=== PATIENT | male | born 2000 | race Caucasian/White ===

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

== ENCOUNTER 2019-11-16 16:24 | Emergency (ER) | payer OTHER, SELFPAY ==
[2019-11-16 16:44] VITALS: BP 147/73; PULSE 73; RESP 20; TEMP 36.8; O2SAT 99; BMI 32.8
--- NOTE | 2019-11-16 16:50 | HMH.EDUTC ---
[facility] [place] Clinical Impression: Encounter for laboratory testing for COVID-19 virus Disposition: Home, Self-Care Condition on Discharge: Good Instructions: Preventing the Spread of Coronavirus Discharge Instructions Additional Instructions: You was tested for today for COVID19 your test result should be back later this evening, you may call back later this evening to see if your test results are back and the result You was given a handout with instructions for Self Quarantine and Self isolation for while you wait on test results and what to do if they are positive May return to work after negative COVID test Return if needed Straight to ER if any life threatening symptoms Referrals: PCP,No [Primary Care Provider] - Forms: Work/School Release Time of Disposition: 16:54 Medical Decision Making - Sam Inquiry Pt receiving controlled substance: No Sam was queried for this patient: No Vital Signs: 11/16/19 16:44 Temperature 98.2 F Temperature Source Oral Pulse Rate [Right Brachial] 73 Respiratory Rate 20 Blood Pressure [Right Arm] 147/73 H Blood Pressure Mean [Right Arm] 97 Blood Pressure Source [Right Arm] Automatic Cuff Blood Pressure Position [Right Arm] Sitting 02 Sat by Pulse Oximetry 99 Oxygen Delivery Method Room Air Orders (Tests/Meds): ORDERS Category Date Time Status Covid-19 Nasal PCR ([facility] [place]) Routine Lab 11/16/19 16:26 Ordered [facility] [place] - General Stated complaint: covid test(to back to work) Time Seen by Provider: 11/16/19 16:50 Mode of Arrival: Ambulatory Source of Information: Patient Limitations: No Limitations Description of Symptoms (Recalled from Triage Doc. by RN): PATIENT STATES HIS WORK IS REQUESTING HIM TO HAVE A COVID TEST TO RETURN TO WORK. STATES HE HAD A FEVER A FEW NIGHTS AGO, BUT HE IS ASYMPTOMATIC AT THIS TIME HEENT Symptoms (Recalled from RN notes): No Resp Symptoms (Recalled from RN notes): No Skin Symptoms (Recalled from RN notes): No MS Symptoms (Recalled from RN notes): No Functional Status (Recalled from RN notes): WNL - History of Present Illness Provider Complaint: Patient states that he had a fever a few nights ago and now work is requiring him to have a COVID test prior to returning to work due to fever States that he hasnt had any fever since yesterday States that it was a low grade fever and he never had any other symptoms - Related Data Previous Rx's Medication Instructions Recorded cefdinir 300 mg capsule 600 mg PO ONCE 10 Days #20 cap 11/05/18 Allergies Allergy/AdvReac Type Severity Reaction Status Date / Time amoxicillin [AMOXICILLIN] Allergy Unknown Verified 04/06/17 09:25 penicillamine Allergy Verified 11/05/18 12:30 Penicillins Allergy Verified 11/16/19 16:49 PLASTIC TAPE Allergy Unknown I-RASH Uncoded 02/04/17 15:05 - Worker's Comp Is this a Worker's Comp case?: No [facility] History - Hepatitis A Screen Drug use history?: No High risk sexual behaviors?: No History of sexually transmitted infection?: No Currently employed?: No Childcare worker?: No Do you have indoor plumbing?: Yes Do you have electricity?: Yes Attestation statement:: This patient has been screened for Hepatitis A risk factors. I have reviewed the patient's past medical history: Yes Laterality Cases: Bilateral: Tonsillectomy Other Surgeries: Yes: Other - Social History Smoking Status: Never smoker Alcohol Intake: never Substance Use Type: denies use Occupational Status: other Housing: house Household Members: family ROS Obtained: Yes All systems reviewed & no additional complaints, Yes Systems reviewed as appropriate & no additional complaints - Constitutional Constitutional: Reports fever(s) (fever 2 days ago that hasnt returned since yesterday) - ENT Ears, Nose, Mouth, and Throat: Reports system reviewed and no additional complaints, except as docu, Denies sinus pain, Denies sinus pressure, Denies sore throat - Cardiovascular Cardi
[2019-11-16 16:55] VITALS: BP 147/73; PULSE 73; RESP 20; TEMP 36.8; O2SAT 99
== END 2019-11-16 16:58 | disposition home or self-care (01) ==
PROVIDERS: Emergency Provider Nurse Practitioner
DX: Z20.828 Contact with and (suspected) exposure to other viral communicable diseases (principal); Z88.0 Allergy status to penicillin; Z91.048 Other nonmedicinal substance allergy status
CPT/HCPCS: 99201; U0003

== ENCOUNTER 2020-08-31 14:00 | Emergency (ER) | payer OTHER, SELFPAY ==
[2020-08-31 14:00] VITALS: BP 135/79; PULSE 66; RESP 18; TEMP 36.9; O2SAT 100; BMI 32.0
--- NOTE | 2020-08-31 14:15 | XR_ITS ---
PROCEDURE: XR ELBOW RT MIN 3V CLINICAL INDICATION: PAIN AND SWELLING COMPARISON: CR ELBR3 ELBOW-RT-3 VIEWS from 11/06/2013 FINDINGS: No fracture or dislocation. No lytic or blastic change. There is normal mineralization. The joint spaces are well-preserved. No significant degenerative/arthritic changes. No erosive changes evident. Other findings:None. IMPRESSION: No acute findings. Dictated by: Shaan Storey MD 08/31/2020 15:09 Shaan Storey MD in [place] 08/31/2020 15:09
--- NOTE | 2020-08-31 14:21 | HMH.EDUTC ---
[facility] [place] Clinical Impression: Elbow pain Qualifiers: Laterality: right Qualified Code(s): M25.521 - Pain in right elbow Disposition: Home, Self-Care Condition on Discharge: Good Instructions: DI for Elbow Pain Additional Instructions: Wear acewrap to see if that will help with pain in your elbow area Follow up with your Family Doctor if no improvement or any worsening of symptoms Return if needed Take medication as prescribed Prescriptions: Ibuprofen [Ibuprofen 600mg Tablet] 600 mg PO Q6HP PRN #20 tab PRN Reason: Moderate Pain Transmission Status: Received by [id number] Referrals: Provider,Referral, [Primary Care Provider] - As needed Time of Disposition: 14:56 Medical Decision Making - Sam Inquiry Pt receiving controlled substance: No Sam was queried for this patient: No Vital Signs: 08/31/20 14:00 Temperature 98.4 F Temperature Source Oral Pulse Rate [Left Brachial] 66 Respiratory Rate 18 Blood Pressure [Left Arm] 135/79 Blood Pressure Mean [Left Arm] 97 Blood Pressure Source [Left Arm] Automatic Cuff Blood Pressure Position [Left Arm] Sitting 02 Sat by Pulse Oximetry 100 Oxygen Delivery Method Room Air - Lab Data Lab results reviewed: Yes: I reviewed the patient's lab results. Lab Results 08/31/20 14:20: Uric Acid 4.9 Orders (Tests/Meds): ORDERS Category Date Time Status XR elbow RT min 3V Stat Exams 08/31/20 14:15 Taken - Radiology Data #1 Image(s): Elbow Image Reviewed: Yes I reviewed the patient's radiology image w/the ED provider Preliminary Findings: No Fracture Seen [facility] [place]PI - General Stated complaint: pain and swelling in right elbow area Time Seen by Provider: 08/31/20 14:21 Mode of Arrival: Ambulatory Source of Information: Patient Limitations: No Limitations Description of Symptoms (Recalled from Triage Doc. by RN): PATIENT C/O PAIN AND SWELLING TO RIGHT ELBOW SINCE THIS MORNING. STATES IT HURTS WITH MOVEMENT. NO KNOWN INJURY HEENT Symptoms (Recalled from RN notes): No Resp Symptoms (Recalled from RN notes): No Skin Symptoms (Recalled from RN notes): No MS Symptoms (Recalled from RN notes): Yes Functional Status (Recalled from RN notes): WNL - History of Present Illness Provider Complaint: Patient state that he woke up this morning having pain in his right elbow area State that pain is worse when he moves it State that he doesnt recall doing anything to hurt it but feels like it is swollen and pain worse when he straightens it out States that he did work on the fence all last week and not sure if he may have pulled something or not - Related Data Previous Rx's Medication Instructions Recorded Ibuprofen [Ibuprofen 600mg 600 mg PO Q6HP PRN #20 tab 08/31/20 Tablet] Allergies Allergy/AdvReac Type Severity Reaction Status Date / Time amoxicillin [AMOXICILLIN] Allergy Unknown Verified 04/06/17 09:25 penicillamine Allergy Verified 11/05/18 12:30 Penicillins Allergy Verified 11/16/19 16:49 PLASTIC TAPE Allergy Unknown I-RASH Uncoded 02/04/17 15:05 - Worker's Comp Is this a Worker's Comp case?: No [facility] History - Hepatitis A Screen Drug use history?: No High risk sexual behaviors?: No History of sexually transmitted infection?: No Currently employed?: No Childcare worker?: No Do you have indoor plumbing?: Yes Do you have electricity?: Yes Attestation statement:: This patient has been screened for Hepatitis A risk factors. I have reviewed the patient's past medical history: Yes Laterality Cases: Bilateral: Tonsillectomy Other Surgeries: Yes: Other Fractures: Yes (HUMERUS) - Social History Smoking Status: Never smoker Alcohol Intake: never Substance Use Type: denies use Occupational Status: other Housing: house Household Members: family ROS Obtained: Yes All systems reviewed & no additional complaints, Yes Systems reviewed as appropriate & no additional complaints - Constitutional Con
[2020-08-31 14:37] LABS: Uric Acid 4.9 mg/dl (3.5-8.5)
[2020-08-31 14:55] VITALS: BP 135/79; PULSE 66; RESP 18; TEMP 36.9; O2SAT 100
== END 2020-08-31 15:00 | disposition home or self-care (01) ==
PROVIDERS: Emergency Provider Nurse Practitioner
DX: M25.521 Pain in right elbow (principal)
CPT/HCPCS: 73080; 84550; 99202; G0463

== ENCOUNTER → 2020-12-27 08:17 | Outpatient (CLI) | payer OTHER, SELFPAY | PROVIDERS: Visit Provider Nurse Practitioner | DX: Z20.822 Contact with and (suspected) exposure to COVID-19 (principal) | CPT/HCPCS: C9803; U0003; U0005 ==

== ENCOUNTER 2021-01-30 13:28 | Emergency (ER) | payer OTHER, SELFPAY ==
--- NOTE | 2021-01-30 15:47 | XR_ITS ---
PROCEDURE INFORMATION: Exam: XR Chest Exam date and time: 01/30/2021 3:47 PM Age: 20 years old Clinical indication: Cough with hemorrhage; Sternal or substernal pain; Patient HX: Patient states he got his covid booster shot on last week and has since had chest pain and coughing blood at times TECHNIQUE: Imaging protocol: XR of the chest. Views: 2 views. COMPARISON: CR CXR1 CHEST-PORTABLE 06/12/2016 4:27 PM FINDINGS: Lungs: Unremarkable. No consolidation. Pleural spaces: Unremarkable. No pleural effusion. No pneumothorax. Heart/Mediastinum: Unremarkable. No cardiomegaly. Bones/joints: Unremarkable. IMPRESSION: No acute findings.
[2021-01-30 16:11] VITALS: BP 153/79; PULSE 82; RESP 22; TEMP 37.1; O2SAT 99; BMI 31.7
--- NOTE | 2021-01-30 16:56 | HMH.EDUTC ---
[facility] [place] Clinical Impression: Acute bronchitis Qualifiers: Bronchitis organism: unspecified organism Qualified Code(s): J20.9 - Acute bronchitis, unspecified Disposition: Home, Self-Care Condition on Discharge: Good Instructions: DI for Acute Bronchitis Additional Instructions: Drink plenty of fluids. Take tylenol or ibuprofen for pain or fever. Take the medications as directed. Follow up with your regular doctor. GO TO THE ER FOR ANY WORSENING SYMPTOMS His work excuse needs to extend from the days he missed last week up until 02/01/2021. Prescriptions: Benzonatate [Benzonatate 100mg cap] 100 mg PO TIDP PRN #30 cap PRN Reason: Cough Transmission Status: Received by [id number] methylPREDNISolone [Medrol] 4 mg PO DIRECTED 6 Days #21 packet Transmission Status: Received by [id number] Azithromycin [Z-Riky 250mg Tab*] 250 mg PO UD DOSE PK #6 tab Transmission Status: Received by [id number] Referrals: Provider,Referral, [Primary Care Provider] - Forms: Work/School Release Time of Disposition: 17:14 Medical Decision Making - Medical Records Medical records reviewed: No: I reviewed the patient's medical records. - Sam Inquiry Pt receiving controlled substance: No Vital Signs: 01/30/21 16:11 01/30/21 17:28 Temperature 98.7 F 98.7 F Temperature Source Oral Pulse Rate 82 Pulse Rate [Left] 82 Respiratory Rate 22 22 Blood Pressure 153/79 H Blood Pressure [Right Arm] 153/79 H Blood Pressure Mean [Right Arm] 103 02 Sat by Pulse Oximetry 99 - Lab Data Lab results reviewed: Yes: I reviewed the patient's lab results. - Radiology Data #1 Image(s): Chest Image Reviewed: Yes I reviewed the patient's radiology image, Yes I have reviewed radiologist's interpretation Preliminary Findings: Normal/NAD, No Infiltrates Seen PROCEDURE INFORMATION: Exam: XR Chest Exam date and time: 01/30/2021 3:47 PM Age: 20 years old Clinical indication: Cough with hemorrhage; Sternal or substernal pain; Patient HX: Patient states he got his covid booster shot on last week and has since had chest pain and coughing blood at times TECHNIQUE: Imaging protocol: XR of the chest. Views: 2 views. COMPARISON: CR CXR1 CHEST-PORTABLE 06/12/2016 4:27 PM FINDINGS: Lungs: Unremarkable. No consolidation. Pleural spaces: Unremarkable. No pleural effusion. No pneumothorax. Heart/Mediastinum: Unremarkable. No cardiomegaly. Bones/joints: Unremarkable. IMPRESSION: No acute findings. [facility] [place] HPI - General Stated complaint: blood with heavy coughing Time Seen by Provider: 01/30/21 16:40 Mode of Arrival: Ambulatory Source of Information: Patient Limitations: No Limitations Description of Symptoms (Recalled from Triage Doc. by RN): pt c/o a productive cough with blood tinged sputum and lung discomfort during coughing. pt states he had his covid booster on 01/25. HEENT Symptoms (Recalled from RN notes): No Resp Symptoms (Recalled from RN notes): Yes (productive cough and lung discomfort) Skin Symptoms (Recalled from RN notes): No MS Symptoms (Recalled from RN notes): No Functional Status (Recalled from RN notes): wnl - History of Present Illness Provider Complaint: He states that about 3 weeks ago he had a viral type illness that caused him to cough a lot and feel bad. He was checked for covid-19 and it was negative. He completely recoved and was feeling normal, so last week he took the 3rd shot of the covid-19 vaccine. By a couple hours after getting that vaccine he had began to feel very bad and have a cough. Since then he has had a frequent deep cough. He has cough so hard at times that he has noted flecks of blood in his sputum. He denies any shortness of breath. - Related Data Previous Rx's Medication Instructions Recorded Ibuprofen [Ibu
[2021-01-30 17:28] VITALS: BP 153/79; PULSE 82; RESP 22; TEMP 37.1
== END 2021-01-30 17:38 | disposition home or self-care (01) ==
PROVIDERS: Emergency Provider Nurse Practitioner Family
DX: J20.9 Acute bronchitis, unspecified (principal)
CPT/HCPCS: 71046; 99202; G0463

== ENCOUNTER → 2021-03-06 11:05 | Outpatient (CLI) | payer OTHER, SELFPAY | PROVIDERS: Visit Provider Nurse Practitioner | DX: U07.1 COVID-19 (principal) | CPT/HCPCS: C9803; U0003; U0005 ==